=== PATIENT | female | born 1995 | race Caucasian/White ===

== ENCOUNTER 2022-04-16 21:48 | Emergency (ER) | payer OTHER ==
[~2022-04-16] VITALS: Ht 180.3 cm; Wt 134.7 kg
[2022-04-16 22:16] VITALS: BP 120/84
--- NOTE | 2022-04-16 22:21 | NUR ---
ER MD IN TRIAGE EXAMINING PATIENT
--- NOTE | 2022-04-16 22:22 | NUR ---
PATIENT TO LOBBY
--- NOTE | 2022-04-16 22:29 | NUR ---
PT TAKEN TO XR
[2022-04-16] MEDS ORDERED: IBUPROFEN 600 MG TAB PO ONE (22:45)
[2022-04-16] MEDS ORDERED: NAPR-54 PO (22:46)
[2022-04-16 23:20] VITALS: BP 120/84
--- NOTE | 2022-04-16 23:20 | NUR ---
Patient discharged with v/s stable. Written and verbal after care instructions given and explaineD by Patient alert, oriented and verbalized understanding of instructions. Ambulatory with steady gait. All questions addressed prior to discharge. ID band removed. Patient advised to follow up with PMD. Rx of NAPROSYN given. Patient educated on indication of medication including possible reaction and side effects. Opportunity to ask questions provided and answered.
== END 2022-04-16 23:20 | disposition home or self-care (01) ==
LOC: MED 21:48
DX: S80.01XA Contusion of right knee, initial encounter (principal); Z86.718 Personal history of other venous thrombosis and embolism; Z79.1 Long term (current) use of non-steroidal anti-inflammatories (NSAID); Z79.01 Long term (current) use of anticoagulants; W01.0XXA Fall on same level from slipping, tripping and stumbling without subsequent striking against object, initial encounter; Y92.89 Other specified places as the place of occurrence of the external cause; Y93.89 Activity, other specified; Y99.8 Other external cause status
CPT/HCPCS: 73562; 99283